=== PATIENT | female | born 1970 | race Caucasian/White ===

== ENCOUNTER 2017-07-28 12:07 | Emergency (ER) | payer BC, OTHER ==
[~2017-07-28] VITALS: Ht 167.6 cm; Wt 57.2 kg
[~2017-07-28 12:07] MED LIST: BUSPAR; THYROID; WELLBUTRIN
[2017-07-28] MEDS ORDERED: BUSPIRONE HCL 30 MG PO (12:19)
[2017-07-28] MEDS ORDERED: LIOTHYRONINE SOD 5 MCG TAB (12:19)
[2017-07-28] MEDS ORDERED: LEVOTHYROXINE 50 MCG TABLET PO (12:19)
--- NOTE | 2017-07-28 13:13 | NUR ---
Dr. Lara at bedside for MSE.
--- NOTE | 2017-07-28 13:36 | NUR ---
Pt was given verbal ACI by but left before written ACI could be given.
== END 2017-07-28 13:37 | disposition home or self-care (01) ==
LOC: ER 12:07
DX: I88.9 Nonspecific lymphadenitis, unspecified (principal); E03.9 Hypothyroidism, unspecified
CPT/HCPCS: A4663

== ENCOUNTER 2017-08-16 10:17 | Emergency (ER) | payer BC ==
[~2017-08-16] VITALS: Ht 167.6 cm; Wt 56.7 kg
[~2017-08-16 10:17] MED LIST changes: -BUSPAR; +BUSPIRONE HCL 30 MG PO; +LEVOTHYROXINE 50 MCG TABLET PO; +LIOTHYRONINE SOD 5 MCG TAB; -THYROID; -WELLBUTRIN
--- NOTE | 2017-08-16 10:39 | NUR ---
DR GUIDRY AT [facility] FOR MSE.
[2017-08-16 10:52] VITALS: BP 100/76
--- NOTE | 2017-08-16 10:53 | NUR ---
Patient discharged to home in stable conditon. Written and verbal after care instructions given. Patient verbalizes understanding of instructions.
== END 2017-08-16 10:54 | disposition home or self-care (01) ==
LOC: ER 10:17
DX: B99.8 Other infectious disease (principal); B95.8 Unspecified staphylococcus as the cause of diseases classified elsewhere; E03.9 Hypothyroidism, unspecified; Z88.8 Allergy status to other drugs, medicaments and biological substances
CPT/HCPCS: 99283; A4663

== ENCOUNTER 2019-02-28 10:34 | Emergency (ER) | payer BC ==
[~2019-02-28] VITALS: Ht 167.6 cm; Wt 59.0 kg
--- NOTE | 2019-02-28 10:39 | NUR ---
DR GREEN AT THE BEDSIDE FOR MSE.
[2019-02-28] MEDS ORDERED: ACETAMINOPHEN 325 MG TABLET PO ONE (10:45)
[2019-02-28] MEDS ORDERED: ONDANSETRON ODT 4 MG TAB.RAPDIS SL ONE (10:45)
[2019-02-28] MEDS ORDERED: ONDANSETRON ODT 4 MG TAB.RAPDIS ONE (10:48)
[2019-02-28] MEDS ORDERED: ACETAMINOPHEN 325 MG TABLET ONE (10:48)
[2019-02-28 11:08] VITALS: BP 112/69
--- NOTE | 2019-02-28 11:09 | NUR ---
Patient discharged to home in stable conditon. Written and verbal after care instructions given. Patient verbalizes understanding of instructions.
== END 2019-02-28 11:25 | disposition home or self-care (01) ==
LOC: ER 10:34
DX: S01.03XA Puncture wound without foreign body of scalp, initial encounter (principal); E03.9 Hypothyroidism, unspecified; Z88.8 Allergy status to other drugs, medicaments and biological substances; Z79.899 Other long term (current) drug therapy; W22.8XXA Striking against or struck by other objects, initial encounter; Y93.89 Activity, other specified; Y92.89 Other specified places as the place of occurrence of the external cause; Y99.8 Other external cause status
CPT/HCPCS: A4663; Q0162

== ENCOUNTER 2020-03-01 22:51 | Emergency (ER) | payer BC ==
[~2020-03-01] VITALS: Ht 167.6 cm; Wt 55.8 kg
[2020-03-01] MEDS ORDERED: SULFAMETH/TRIMETH 800/160 MG TABLET ONE (23:10)
--- NOTE | 2020-03-01 23:13 | NUR ---
Patient discharged to home in stable condition. Written and verbal after care instructions given. Patient verbalizes understanding of instructions. Stressed follow up or return to ER for worsening s/s. Patient ambulated with stable gait.
[2020-03-01 23:14] VITALS: BP 110/72
[2020-03-01] MEDS ORDERED: SULFAMETH/TRIMETH 800/160 MG TABLET PO ONE (23:15)
== END 2020-03-01 23:15 | disposition home or self-care (01) ==
LOC: ER 22:51
DX: T78.40XA Allergy, unspecified, initial encounter (principal); S50.861A Insect bite (nonvenomous) of right forearm, initial encounter; W57.XXXA Bitten or stung by nonvenomous insect and other nonvenomous arthropods, initial encounter; Y92.89 Other specified places as the place of occurrence of the external cause; E03.9 Hypothyroidism, unspecified
CPT/HCPCS: A4663

== ENCOUNTER 2021-02-27 23:28 | Emergency (ER) | payer BC ==
[~2021-02-27] VITALS: Ht 167.6 cm; Wt 54.4 kg
--- NOTE | 2021-02-27 23:35 | NUR ---
Patient brought in by [id number] for chest pain that started this evening. Per EMS, no ST elevation on their EKG and pt has no cardiac hx. Per patient she recently got her 2nd dose of her covid vaccine and chest pain occured. EKG done, give to Dr. Ann. Noted Sinus rythmn on monitor.
--- NOTE | 2021-02-27 23:42 | NUR ---
Patient refused IV start. Dr. Ann at bedside, stated ok for patient ot only have blood draw at this time.
[2021-02-27 23:59] LABS: POTASSIUM 4.2 mmol/L (3.5-5.1)
[2021-02-28 00:02] LABS: HEMATOCRIT 35.8 % (31.2-41.9); MEAN CORPUSCULAR HEMOGLOBIN 32.5 uug (24.7-32.8); MEAN CORPUSCULAR VOLUME 96.2 fL (75.5-95.3); PLATELET COUNT (AUTO) 125 K/uL (179-408)
[2021-02-28] MEDS ORDERED: ACETAMINOPHEN 325 MG TABLET PO ONE (00:15)
[2021-02-28] MEDS ORDERED: ACETAMINOPHEN 325 MG TABLET ONE (00:20)
--- NOTE | 2021-02-28 00:47 | NUR ---
Per Dr. Ann, pt stable for discharge. DC instructions given and reviewed with pt. Verbalized understanding. Left ER in stable condition, ambulated with steady gait.
[2021-02-28 00:53] VITALS: BP 114/73
== END 2021-02-28 00:55 | disposition home or self-care (01) ==
LOC: ER 23:31
DX: R07.89 Other chest pain (principal); E06.3 Autoimmune thyroiditis; E03.9 Hypothyroidism, unspecified; Z79.890 Hormone replacement therapy; Z84.89 Family history of other specified conditions; F41.9 Anxiety disorder, unspecified
CPT/HCPCS: 36415; 70030-TC; 71045; 85025; 93005

== ENCOUNTER 2024-05-15 21:54 | Emergency (ER) | payer BC ==
[~2024-05-15] VITALS: Ht 165.1 cm; Wt 58.1 kg
[2024-05-15] MEDS ORDERED: HYDROCODONE/APAP 5-325MG TABLET ONE (22:41)
[2024-05-15] MEDS ORDERED: AMOXICILLIN-CLAVUL 875-125MG TABLET ONE (22:41)
[2024-05-15] MEDS: AMOXICILLIN-CLAVUL 875-125MG TABLET PO ONE (22:44)
[2024-05-15] MEDS: HYDROCODONE/APAP 5-325MG TABLET PO ONE (22:44)
[2024-05-15] MEDS ORDERED: AMOX-430 PO (23:51)
[2024-05-16 00:01] VITALS: BP 121/74; TEMP 98.6; O2SAT 100
== END 2024-05-16 00:02 | disposition home or self-care (01) ==
LOC: ER 21:57
DX: S61.237A Puncture wound without foreign body of left little finger without damage to nail, initial encounter (principal); E03.9 Hypothyroidism, unspecified; Z98.890 Other specified postprocedural states; Z79.899 Other long term (current) drug therapy; Z88.1 Allergy status to other antibiotic agents; W54.0XXA Bitten by dog, initial encounter; Y93.89 Activity, other specified; Y92.89 Other specified places as the place of occurrence of the external cause; Y99.8 Other external cause status
CPT/HCPCS: 73130; A4606; A4663